=== PATIENT | female | born 1950 | race Caucasian/White ===

== ENCOUNTER → 2017-04-13 | Outpatient (CLI) | payer MEDICARE, BC | END | disposition home or self-care (01) | LOC: HKI 11:06 | DX: M17.0 Bilateral primary osteoarthritis of knee (principal); M25.561 Pain in right knee; M25.562 Pain in left knee | CPT/HCPCS: 73562; 73562-50 ==

== ENCOUNTER → 2017-05-14 | Outpatient (CLI) | payer MEDICARE, BC | END | disposition home or self-care (01) | LOC: HKI 13:52 | DX: M25.561 Pain in right knee (principal); S83.206D Unspecified tear of unspecified meniscus, current injury, right knee, subsequent encounter ==

== ENCOUNTER → 2017-08-23 | Outpatient (CLI) | payer MEDICARE, BC | END | disposition home or self-care (01) | LOC: HKI 11:46 | DX: Z47.89 Encounter for other orthopedic aftercare (principal) | CPT/HCPCS: G0463 ==

== ENCOUNTER 2017-08-26 05:32 | Day surgery (SDC) | payer MEDICARE, BC ==
[2017-08-26] MEDS ORDERED: CEFAZOLIN 2 GM/50 ML (PMX) 50 ML IVPB (06:00)
[2017-08-26] MEDS: ACETAMINOPHEN 1000MG/100ML IV 100 ML IVPB (06:37)
[2017-08-26] MEDS: PANTOPRAZOLE (EC) 40 MG TAB PO (06:37)
[2017-08-26] MEDS: DEXAMETHASONE 4 MG/ML 1 ML INJ IV (06:38)
[2017-08-26] MEDS: oxyCODONE (CR) 10 MG TAB [oxyCONTIN] PO (06:38)
[2017-08-26] MEDS: ONDANSETRON 4 MG INJ IV (06:38)
[2017-08-26] MEDS ORDERED: CEFAZOLIN 1 GM INJ ×2 (07:00→08:27)
[2017-08-26] MEDS ORDERED: NEOSTIGMINE 3 MG/3 ML SYRINGE (07:00)
[2017-08-26] MEDS ORDERED: ROCURONIUM 50 MG INJ (07:00)
[2017-08-26] MEDS ORDERED: GLYCOPYRROLATE 0.4 MG INJ (07:00)
[2017-08-26] MEDS ORDERED: MIDAZOLAM 1 MG/ML 2 ML INJ (07:38)
[2017-08-26] MEDS: LIDOCAINE 1%/EPI 30 ML INJ (07:58)
[2017-08-26] MEDS ORDERED: HYDROCODONE/APAP (5/325) TAB PO ×2 (08:00)
[2017-08-26] MEDS ORDERED: ONDANSETRON 4 MG INJ IV ×2 (08:00→09:00)
[2017-08-26] MEDS: BUPIVACAINE 0.25% (MPF) 30 ML INJ (08:20)
[2017-08-26] MEDS ORDERED: ONDANSETRON 4 MG INJ (08:25)
[2017-08-26] MEDS ORDERED: PROPOFOL 20 ML (08:27)
[2017-08-26] MEDS ORDERED: LIDOCAINE 2% (SDV) 5 ML INJ (08:27)
[2017-08-26] MEDS ORDERED: FENTAnyl 50 MCG/ML VIAL IV (09:00)
[2017-08-26] MEDS ORDERED: hydrALAzine 20 MG INJ IV (09:00)
[2017-08-26] MEDS ORDERED: HYDROmorphONE (0.2 MG/ML) 10ML SYG IV ×2 (09:00)
[2017-08-26] MEDS ORDERED: LABETALOL HCL 20MG INJ IV (09:00)
[2017-08-26] MEDS ORDERED: DIPHENHYDRAMINE 50 MG INJ IV (09:00)
[2017-08-26] MEDS ORDERED: MEPERIDINE 25 MG INJ IV (09:00)
== END 2017-08-26 10:30 | disposition home or self-care (01) ==
LOC: SDS 05:32
DX: M23.221 Derangement of posterior horn of medial meniscus due to old tear or injury, right knee (principal); M13.861 Other specified arthritis, right knee; E78.5 Hyperlipidemia, unspecified; I10 Essential (primary) hypertension; E66.9 Obesity, unspecified; Z68.31 Body mass index [BMI] 31.0-31.9, adult
CPT/HCPCS: 29881; 71045; 97161

== ENCOUNTER → 2017-09-06 | Outpatient (CLI) | payer MEDICARE, BC | END | disposition home or self-care (01) | LOC: HKI 11:55 | DX: Z47.89 Encounter for other orthopedic aftercare (principal) ==

== ENCOUNTER → 2018-08-01 | Outpatient (CLI) | payer MEDICARE, BC | END | disposition home or self-care (01) | LOC: HKI 10:32 | DX: M17.11 Unilateral primary osteoarthritis, right knee (principal) | CPT/HCPCS: 20610 ==